=== PATIENT | male | born 1990 | race Caucasian/White ===

== ENCOUNTER 2017-06-15 08:05 | Emergency (ER) | payer OTHER ==
[2017-06-15 08:12] VITALS: BP 138/85
--- NOTE | 2017-06-15 08:30 | ED Physician Documentation ---
PD HPI SKIN - Stated complaint Stated Complaint: FACIAL SWELLING - Chief complaint Chief Complaint: Heent - History obtained from History obtained from: Patient - History of Present Illness Timing - onset: Yesterday (with just a small pimple/tender area, which got enlarged overnight and drained pus this morning. Still with redness/tenderness in the area.) Timing - duration: Days (2) Timing - details: Abrupt onset, Still present (had small pimple type sore that got big quickly and then drained pus this morning. Has facial swelling around it and some redness.) Location: Face (right anterior cheek lateral to corner of the mouth. No orolabial lesions.) Quality / character: Painful, Swelling, Draining Associated symptoms: No: Fever, N/V/D Similar symptoms before: Has not had sx before Recently seen: Not recently seen Review of Systems Constitutional: denies: Fever, Chills, Myalgias GI: denies: Nausea, Vomiting, Diarrhea PD PAST MEDICAL HISTORY - Past Medical History Cardiovascular: None Respiratory: None Neuro: None Endocrine/Autoimmune: None - Present Medications Home Medications: Ambulatory Orders Medication Instructions Recorded Confirmed Mupirocin 1 applic TP TID #15 oint...g. 06/15/17 Sulfamethox/Trimeth 800/160 1 each PO BID #14 tablet 06/15/17 [Bactrim Ds 800/160] - Allergies Allergies/Adverse Reactions: Allergies Allergy/AdvReac Type Severity Reaction Status Date / Time No Known Drug Allergies Allergy Verified 06/15/17 08:12 PD ED PE NORMAL - Vitals Vital signs reviewed: Yes - General General: Alert and oriented X 3, No acute distress, Well developed/nourished - HEENT HEENT: Ears normal, Pharynx benign, Other (right anterior cheek with small 1-2 mm hole with local redness and some swelling surrounding. No fluctuance. Locally tender. ) - Neck Neck: Supple, no meningeal sign, No adenopathy - Cardiac Cardiac: RRR, No murmur - Respiratory Respiratory: Clear bilaterally - Derm Derm: Normal color, Warm and dry Results - Vitals Vitals: Vital Signs - 24 hr 06/15/17 08:11 Temperature 36.6 C Heart Rate 66 Respiratory 16 Rate Blood Pressure 138/85 H O2 Saturation 99 Oxygen O2 Source Room air PD MEDICAL DECISION MAKING - ED course Complexity details: considered differential (presumed staph, with the abscess having drained spontaneously but has some facial cellulitis/edema around it so will treat with abx for that. ), d/w patient Departure - Departure Disposition: 01 Home, Self Care Clinical Impression: Acute abscess of face Condition: Stable Record reviewed to determine appropriate education?: Yes Instructions: ED Staph Infec Abx Tx Only Follow-Up: [facility] [Provider Group] Prescriptions: Mupirocin 1 applic TP TID #15 oint...g. Sulfamethox/Trimeth 800/160 [Bactrim Ds 800/160] 1 each PO BID #14 tablet Comments: Abscess type infections coming on this quicker typically Staphylococcus. Use Bactrim antibiotic twice daily for the next 5-7 days to completely cleared. Use topical mupirocin ointment as well 2-3 times a day. Recheck if not completely better over several days to week. It is good that it drained itself and you can use some warm moist towels today to the area to try to promote further drainage through the day. Tylenol or ibuprofen if needed for pain. Discharge Date/Time: 06/15/17 08:49
[2017-06-15] MEDS ORDERED: SULFAMETH/TRIMETH DS 800/160 MG TABLET PO STA (08:38)
[2017-06-15] MEDS ORDERED: MUPIROCIN 2% OINT 1 GM TOP STA (08:38)
== END 2017-06-15 08:49 | disposition home or self-care (01) ==
LOC: ED 08:05
DX: L02.01 Cutaneous abscess of face (principal); L03.221 Cellulitis of neck
CPT/HCPCS: 99283; A9270